=== PATIENT | male | born 1990 | race Caucasian/White ===

== ENCOUNTER 2016-07-04 15:01 | Emergency (ER) | payer MEDICAID, SELFPAY ==
[~2016-07-04] VITALS: Ht 175.3 cm; Wt 62.1 kg
--- NOTE | 2016-07-04 16:27 | REP ---
Clinical: Trauma. Rule out foreign body. Technique: AP and frog lateral views of the right femur. Findings: No acute fracture dislocation. Skeletal structures, joint spaces, and surrounding soft tissues are normal. No subcutaneous emphysema or radiodense foreign body. Impression: Normal right femur radiographs. No foreign body. Signed by Omar Metzger MD 07/04/2016 04:18 P
[2016-07-04] MEDS ORDERED: AUGM875T27 PO (16:28)
[2016-07-04 16:43] VITALS: BP 104/62
== END 2016-07-04 16:44 | disposition home or self-care (01) ==
LOC: M ED 16:04
DX: S71.131A Puncture wound without foreign body, right thigh, initial encounter (principal); V18.2XXA Unspecified pedal cyclist injured in noncollision transport accident in nontraffic accident, initial encounter; Y92.410 Unspecified street and highway as the place of occurrence of the external cause; Y93.55 Activity, bike riding; Y99.9 Unspecified external cause status

== ENCOUNTER 2017-11-20 10:54 | Emergency (ER) | payer OTHER, SELFPAY ==
[2017-11-20] MEDS: ONDANSETRON 4 MG ORAL DISINTEGRATING TAB (Q0162 PER 1MG) PO (11:50)
[2017-11-20] MEDS: ACETAMINOPHEN TAB 650MG DOSE (2X325MG) PO (11:51)
[2017-11-20] MEDS: NS 500 ML IV (11:51)
[2017-11-20 11:53] LABS: BASO % 0.2 % (0.0-1.0); HEMATOCRIT 45.4 % (42.0-52.0); HEMOGLOBIN 15.1 g/dl (13.5-17.5); IMMATURE GRANULOCYTE % 0.3 % (0-3.0); LYMPH # 0.8 10^3/uL (1.5-6.5); LYMPH % 5.3 % (24.0-44.0); MEAN CORPUSCULAR HEMOGLOBIN 29.2 pg (27.0-33.0); MEAN CORPUSCULAR HGB CONC 33.3 g/dl (32.0-36.5); MEAN CORPUSCULAR VOLUME 87.6 fl (80.0-96.0); MONO # 1.1 10^3/uL (0.0-0.8); MONO % 6.9 % (0.0-5.0); NEUTROPHILS # 13.4 10^3/uL (1.8-7.7); NEUTROPHILS % 87.3 % (36.0-66.0); PLATELET COUNT, AUTOMATED 284 10^3/uL (150-450); RED BLOOD COUNT 5.18 10^6/uL (4.30-6.10); RED CELL DISTRIBUTION WIDTH 12.5 % (11.5-14.5); WHITE BLOOD COUNT 15.3 10^3/uL (4.0-10.0)
[2017-11-20 12:02] LABS: KETONE, URINE AUTO RFX 1+ mg/dL (NEGATIVE); LEUKOCYTE ESTERASE UR AUTO RFX NEGATIVE (NEGATIVE); MUCUS, URINE RFX SMALL (NEGATIVE); NITRITE, URINE AUTO RFX NEGATIVE (NEGATIVE); RBC, URINE AUTO RFX 9 /HPF (0-3); SQUAM EPITHELIAL CELL UR AURFX 0 /HPF (0-6); WBC, URINE AUTO RFX 1 /HPF (0-3)
[2017-11-20 12:25] LABS: INFLUENZA A AMPLIFICATION NEGATIVE (NEGATIVE); INFLUENZA B AMPLIFICATION NEGATIVE (NEGATIVE)
[2017-11-20 12:32] LABS: ALBUMIN 4.9 GM/DL (3.2-5.2); ALKALINE PHOSPHATASE 61 U/L (45-117); ALT/SGPT 21 U/L (12-78); AMYLASE 99 U/L (25-115); ANION GAP 12 MEQ/L (8-16); AST/SGOT 17 U/L (7-37); BILIRUBIN,DIRECT 0.3 MG/DL (0.0-0.2); BILIRUBIN,TOTAL 1.9 MG/DL (0.2-1.0); BLOOD UREA NITROGEN 14 MG/DL (7-18); CALCIUM LEVEL 9.7 MG/DL (8.5-10.1); CARBON DIOXIDE LEVEL 21 MEQ/L (21-32); CHLORIDE LEVEL 111 MEQ/L (98-107); GLOMERULAR FILTRATION RATE > 60.0 (>60); GLUCOSE, FASTING 123 MG/DL (70-100); LIPASE 191 U/L (73-393); POTASSIUM SERUM 3.3 MEQ/L (3.5-5.1); SODIUM LEVEL 144 MEQ/L (136-145)
[2017-11-20 12:39] LABS: LACTIC ACID SEPSIS PROTOCOL 6.1 MMOL/L (0.4-2.0)
[2017-11-20] MEDS ORDERED: ISOVUE-370 76% 100ML VIAL (Q9967) As Ordered (12:42)
[2017-11-20] MEDS ORDERED: NS 1,800 ML in APPROPRIATE DILUENT 1 EA IV (12:45)
[2017-11-20] MEDS: NS 1,800 ML in APPROPRIATE DILUENT 1 EA IV (12:45)
[2017-11-20] MEDS: VANCOMYCIN HCL 1,000 MG, VIAL MATE ADAPTER 1 EACH in D5W 250 ML IV (12:45)
[2017-11-20 13:13] LABS: C REACTIVE PROTEIN QUANTITATIV < 0.30 MG/DL (0.00-0.30)
[2017-11-20 14:08] LABS: CONTROL LINE MONO RF C INT CTR LINE PRESENT; MONO REFLEX EBV COMP NEGATIVE (NEGATIVE)
[2017-11-20] MEDS: PIPERACILLIN/TAZOBACTAM SOD 4.5 GM in D5W MINI-BAG PLUS 50 ML IV (14:26)
[2017-11-20] MEDS: POTASSIUM CHLORIDE 10 MEQ SR TABLET PO (16:17)
[2017-11-23 15:09] LABS: EBV VIRAL CAPSID AG IgM <36.0 U/mL (0.0-35.9)
== END 2017-11-20 16:50 | disposition home or self-care (01) ==
LOC: M ED 10:54
DX: B34.9 Viral infection, unspecified (principal); E86.0 Dehydration
CPT/HCPCS: J3370

== ENCOUNTER 2018-01-20 15:44 | Emergency (ER) | payer OTHER | END 2018-01-20 16:45 | disposition home or self-care (01) | LOC: M ED 15:44 | DX: K02.9 Dental caries, unspecified (principal); K08.89 Other specified disorders of teeth and supporting structures | CPT/HCPCS: 99282 ==

== ENCOUNTER 2019-05-11 06:11 | Emergency (ER) | payer MEDICAID, OTHER ==
[~2019-05-11] VITALS: Ht 175.3 cm; Wt 61.9 kg
[2019-05-11 06:11] VITALS: BP 120/61
[~2019-05-11 06:11] MED LIST: ACET500T15 PO; AMOX500C; AUGM875T28 PO; HYDR-3715 PO; ONDA4TAB6 PO
[2019-05-11] MEDS ORDERED: BENZOCAINE 10% 9GM TUBE (ANBESOL) TOP PRN (06:30)
[2019-05-11] MEDS ORDERED: KETOROLAC 60 MG/2 ML VIAL (J1885) IM ONE (06:30)
[2019-05-11] MEDS ORDERED: KETO10TAB PO (06:33)
== END 2019-05-11 06:44 | disposition home or self-care (01) ==
LOC: M ED 06:11
DX: K08.89 Other specified disorders of teeth and supporting structures (principal)
CPT/HCPCS: 96372; 99282; J1885

== ENCOUNTER 2019-12-16 21:37 | Emergency (ER) | payer OTHER ==
[~2019-12-16] VITALS: Ht 175.3 cm; Wt 60.5 kg
[~2019-12-16 21:37] MED LIST changes: +KETO10TAB PO
[2019-12-17] MEDS ORDERED: MAGIC MOUTHWASH SUSPENSION BTL SSP STA (00:16)
[2019-12-17] MEDS ORDERED: AUGM875T28 PO (00:20)
[2019-12-17] MEDS ORDERED: HYDR-3713 PO (00:20)
[2019-12-17] MEDS ORDERED: MAGICMW SSP (00:20)
[2019-12-17] MEDS ORDERED: AUGMENTIN 875 MG TAB PO ONE (00:30)
[2019-12-17] MEDS ORDERED: NORCO 5/325MG TABLET (BULK FOR ED) PO ONE (00:30)
[2019-12-17 00:52] VITALS: BP 121/53
== END 2019-12-17 00:50 | disposition home or self-care (01) ==
LOC: M ED 21:37
DX: K02.9 Dental caries, unspecified (principal); S02.5XXA Fracture of tooth (traumatic), initial encounter for closed fracture; X58.XXXA Exposure to other specified factors, initial encounter; Y92.89 Other specified places as the place of occurrence of the external cause; Y93.89 Activity, other specified; Y99.8 Other external cause status

== ENCOUNTER 2020-07-10 22:20 | Emergency (ER) | payer OTHER ==
[~2020-07-10] VITALS: Ht 175.3 cm; Wt 59.5 kg
[~2020-07-10 22:20] MED LIST changes: +HYDR-3713 PO; +MAGICMW SSP
[2020-07-10 22:21] VITALS: BP 130/84
== END 2020-07-10 23:42 | disposition left against medical advice (07) ==
LOC: M ED 22:20
DX: Z53.21 Procedure and treatment not carried out due to patient leaving prior to being seen by health care provider (principal)